=== PATIENT | female | born 1990 ===

== ENCOUNTER 2017-07-24 17:01 | Emergency (ER) | payer SELFPAY ==
[2017-07-24 17:20] VITALS: BP 149/91
== END 2017-07-25 01:03 | disposition left against medical advice (07) ==
LOC: ED 17:01
DX: R10.9 Unspecified abdominal pain (principal); Z53.21 Procedure and treatment not carried out due to patient leaving prior to being seen by health care provider

== ENCOUNTER 2017-07-31 16:32 | Emergency (ER) | payer OTHER ==
[2017-07-31] MEDS ORDERED: NORCO 5/325 ONE (20:38)
[2017-07-31] MEDS ORDERED: NORCO 5/325 PO ONE (20:39)
--- NOTE | 2017-07-31 21:16 | Emergency Department Report ---
ED Fall HPI - General Chief Complaint: Back Pain/Injury Stated Complaint: HIP PAIN Time Seen by Provider: 07/31/17 21:06 Source: patient Mode of arrival: Ambulatory Limitations: No Limitations - History of Present Illness Complaint: fall -: week(s) (1 week ago) Fall From: standing When Fall Occurred: other (1 week ago) Fall Witnessed: no (Right hip and lumbar spine) Place Fall Occurred: other ([place]) Loss of Consciousness: none Prolonged Down Time?: minute(s) Symptoms Prior to Fall: none Location: pelvis, buttocks Location - Extremities: Right: Knee Severity: moderate Severity scale (0 -10): 10 Quality: sharp Context: tripped/slipped - Related Data Previous Rx's Medication Instructions Recorded Last Taken Type Acetaminophen/Codeine [Tylenol 1 tab PO Q6H PRN 3 Days #10 tab 08/01/17 Unknown Rx /Codeine # 3 tab] Back Brace [Ultra Support] 1 each MC BID PRN #1 each 08/01/17 Unknown Rx Cyclobenzaprine [Flexeril] 10 mg PO TID PRN #30 tablet 08/01/17 Unknown Rx Naproxen [EC-Naprosyn] 500 mg PO BID PRN #20 tablet. 08/01/17 Unknown Rx Allergies Allergy/AdvReac Type Severity Reaction Status Date / Time No Known Allergies Allergy Unverified 07/24/17 17:20 ED Review of Systems ROS: Stated complaint: HIP PAIN Other details as noted in HPI Comment: All other systems reviewed and negative Musculoskeletal: back pain Neurological: as per HPI, other Psychiatric: denies: anxiety, depression, suicidal thoughts ED Past Medical Hx - Past Medical History Previous Medical History?: No Hx Hypertension: No Hx CVA: No Hx Heart Attack/AMI: No Hx Congestive Heart Failure: No Hx Diabetes: No Hx Deep Vein Thrombosis: No Hx Pulmonary Embolism: No Hx GERD: No Hx Liver Disease: No Hx Renal Disease: No Hx of Cancer: No Hx Sickle Cell Disease: No Hx Arthritis: No Hx Headaches / Migraines: No Hx Seizures: No Hx Kidney Stones: No Hx Psychiatric Treatment: No Hx Asthma: No Hx COPD: No - Surgical History Past Surgical History?: No Hx Coronary Stent: No Hx Open Heart Surgery: No Hx Pacemaker: No Hx Internal Defibrillator: No Hx Cholecystectomy: No Hx Appendectomy: No Hx Breast Surgery: No - Social History Smoking Status: Never Smoker Substance Use Type: None - Medications Home Medications: Home Medications Medication Instructions Recorded Confirmed Last Taken Type Acetaminophen/Codeine [Tylenol 1 tab PO Q6H PRN 3 Days #10 tab 08/01/17 Unknown Rx /Codeine # 3 tab] Back Brace [Ultra Support] 1 each MC BID PRN #1 each 08/01/17 Unknown Rx Cyclobenzaprine [Flexeril] 10 mg PO TID PRN #30 tablet 08/01/17 Unknown Rx Naproxen [EC-Naprosyn] 500 mg PO BID PRN #20 tablet. 08/01/17 Unknown Rx ED Physical Exam - General Limitations: No Limitations General appearance: alert, in no apparent distress - Head Head exam: Present: atraumatic - Eye Eye exam: Present: normal appearance Pupils: Present: normal accommodation - Respiratory Respiratory exam: Present: normal lung sounds bilaterally - Cardiovascular Cardiovascular Exam: Present: regular rate, normal heart sounds - Extremities Exam Extremities exam: Present: normal inspection, full ROM, normal capillary refill - Expanded Lower Extremity Exam Right Hip exam: Present: full ROM. Absent: swelling, erythema Upper Leg exam: Present: tenderness. Absent: swelling Knee exam: Present: tenderness, full knee extension. Absent: swelling, pain/ laxity with valgus, pain/laxity with varus Lower Leg exam: Present: tenderness Ankle exam: Present: normal inspection Foot/Toe exam: Present: erythema Neuro vascular tendon exam: Present: no vascular compromise (2+ dorsal/pedial pulses) Gait: Positive: observed and limited by pain - Back Exam Back exam: Present: normal inspection - Neurological Exam Neurological exam: Present: alert, oriented X3, CN II-XII intact, normal gait - Psychiatric Psychiatric exam: Present: normal affect, normal mood - Skin Skin exam: Present: warm, dry, intact ED Course Vital Signs 07/31/17 17:40 Temperature 98.2 F Pulse Rate 88 Respiratory 16 Rate Blood Pressure 123/72 O2 Sat by Pulse 99 Oximetry ED Medical Decision Making - Medical Decision Making Patient presents to the emergency room with chief complaint of right hip, knee , and back, pain. Patient reports 1 week ago she was in [place] when she slipped and fell on the floor. Patient denies loss of consciousness. She denies dizziness, syncope, and any neurological deficits. She rates knee, hip, and back pain 10/10. She describes pain as a constant sharp sensation. A relieving factor includes rest. An aggravating factor includes movement. Upon examination right hip ROM is limited due to pain. Adduction and abduction noted with right leg. No erythema noted. No swelling of right hip noted. Right knee able to extend and flex. No erythema noted. No swelling noted. Moderate tenderness to palpation. Lumbar spine limited range of motion with flexion secondary to pain . Tenderness to palpation no swelling noted. Patient given [place] 5/325 x 2 for pain control. Per patient medicine provided pain relief. Xray of the right hip, knee, and lumbar spine ordered. Findings were insignificant. No fractures noted. HCG and urinalsysis were negative. Patient has been diagnosed with contusion of right hip and right knee. Lumbar strain. Patient given Flexeril 3 times a day. Naproxen 500 mg twice a day as needed for pain and inflammation. Patient informed to follow-up with orthopedics. If symptoms do not improve or worsen patient is to return to the emergency room immediately. Critical care attestation.: If time is entered above; I have spent that time in minutes in the direct care of this critically ill patient, excluding procedure time. ED Disposition Clinical Impression: Contusion of right hip Qualifiers: Encounter type: initial encounter Qualified Code(s): S70.01XA - Contusion of right hip, initial encounter Contusion of right knee and lower leg Qualifiers: Encounter type: initial encounter Qualified Code(s): S80.01XA - Contusion of right knee, initial encounter; S80.11XA - Contusion of right lower leg, initial encounter; S80.11XA - Contusion of right lower leg, initial encounter Lumbar strain Qualifiers: Encounter type: initial encounter Qualified Code(s): S39.012A - Strain of muscle, fascia and tendon of lower back, initial encounter Disposition: DC- TO HOME OR SELFCARE Is pt being admited?: No Does the pt Need Aspirin: No Condition: Stable Instructions: Knee Pain (ED), Low Back Strain (ED), Contusion in Adults (ED) Prescriptions: Acetaminophen/Codeine [Tylenol /Codeine # 3 tab] 1 tab PO Q6H PRN 3 Days #10 tab PRN Reason: Pain Back Brace [Ultra Support] 1 each MC BID PRN #1 each PRN Reason: Pain Cyclobenzaprine [Flexeril] 10 mg PO TID PRN #30 tablet PRN Reason: Muscle Spasm Naproxen [EC-Naprosyn] 500 mg PO BID PRN #20 tablet. PRToño Reason: Pain Referrals: ANTON RICHARDSON MD [Staff Physician] - 3-5 Days
[2017-07-31 23:18] LABS: Bilirubin,Urine NEG (Negative); Blood,Urine LG (Negative); Color,Urine Red (Yellow); Mucus,Urine 3+ /HPF; Nitrite,Urine NEG (Negative); Protein,Urine <15 mg/dL mg/dL (Negative); Urobilinogen,Urine < 2.0 mg/dL (<2.0)
[2017-07-31 23:19] LABS: RBC,Urine > 182.0 /HPF (0.0-6.0)
[2017-07-31 23:25] LABS: HCG Qualitative,Urine Negative (Negative)
[2017-08-01] MEDS ORDERED: NORCO 5/325 ONE (00:28)
[2017-08-01] MEDS ORDERED: NORCO 5/325 PO ONE (00:30)
[2017-08-01 00:54] VITALS: BP 133/80
--- NOTE | 2017-08-01 03:09 | XRay Report ---
FINAL REPORT EXAM: XR HIP 2-3V RT HISTORY: hip pain s/p fall COMPARISON: None available. FINDINGS: Two views of right hip obtained. Right hip joint space preserved. No acute fracture dislocation. Pelvic ring is intact. IMPRESSION: No acute bony abnormality.
--- NOTE | 2017-08-01 03:10 | XRay Report ---
FINAL REPORT EXAM: XR SPINE LUMBOSACRAL 2-3V HISTORY: back pain s/p fall COMPARISON: None available. FINDINGS: Three views of the lumbar spine obtained. Lumbar vertebral body heights are preserved. Mild loss of disc height L5-S1 level. Mild levoconvex curvature. IMPRESSION: Lumbar vertebral body heights are preserved. Mild loss of disc height L5-S1 level. Mild levoconvex curvature.
--- NOTE | 2017-08-01 03:11 | XRay Report ---
FINAL REPORT EXAM: XR KNEE 1-2V RT HISTORY: knee pain s/p fall COMPARISON: None available. FINDINGS: Three views the right knee obtained. Bony structures are intact. Joint spaces are preserved. No acute fracture dislocation. IMPRESSION: No acute bony abnormality.
== END 2017-08-01 01:30 | disposition home or self-care (01) ==
LOC: ED 16:32
DX: S39.012A Strain of muscle, fascia and tendon of lower back, initial encounter (principal); S70.01XA Contusion of right hip, initial encounter; S80.01XA Contusion of right knee, initial encounter; S80.11XA Contusion of right lower leg, initial encounter; W01.0XXA Fall on same level from slipping, tripping and stumbling without subsequent striking against object, initial encounter; Y93.89 Activity, other specified; Y92.59 Other trade areas as the place of occurrence of the external cause; Y99.8 Other external cause status
CPT/HCPCS: 72100; 81001; 81025; 99284